=== PATIENT | male | born 1980 | race American Indian/Alaskan Native ===

== ENCOUNTER 2019-01-26 21:33 | Inpatient (IN) | payer BC, OTHER ==
[2019-01-26 22:08] LABS: Basophils % (Auto) 0.6 % (0.0-1.8); Eosinophils # (Auto) 0.1 K/mm3 (0.0-0.4); Eosinophils % (Auto) 0.7 % (0.0-4.3); Lymphocytes # (Auto) 1.5 K/mm3 (1.2-5.4); Lymphocytes % (Auto) 19.5 % (13.4-35.0); Mean Corpuscular HGB Conc 31 % (32-34); Mean Corpuscular Volume 90 fl (84-94); Monocytes # (Auto) 0.5 K/mm3 (0.0-0.8); Monocytes % (Auto) 5.9 % (0.0-7.3); Platelet Count 308 K/mm3 (140-440); Red Blood Count 5.14 M/mm3 (3.65-5.03); Red Cell Distribution Width 14.2 % (13.2-15.2)
[2019-01-26 22:12] LABS: Hematocrit 46.2 % (35.5-45.6); Hemoglobin 14.4 gm/dl (11.8-15.2)
[2019-01-26 22:33] LABS: Alanine Aminotransferase 30 units/L (7-56); Albumin 4.2 g/dL (3.9-5); BUN/Creatinine Ratio 14; Blood Urea Nitrogen 17 mg/dL (9-20); Calcium 10.1 mg/dL (8.4-10.2); Hemolysis Index 30
[2019-01-26] MEDS ORDERED: APRESOLINE IV ONE (22:54)
[2019-01-26] MEDS ORDERED: D50W (25GM) Syringe IV PRN ×3 (22:54→23:34)
--- NOTE | 2019-01-26 22:58 | Emergency Department Report ---
HPI - General Chief Complaint: Urogenital-Male Time Seen by Provider: 01/26/19 22:25 - HPI HPI: 38-year-old -[place] male presents to the emergency department with complaint of thrush, increased urination, increased thirst. The patient was told that he was prediabetic about 2 years ago and also that he had some borderline hypertension but he was not placed on any medications and has been trying to control these conditions with diet. However through triage today his blood sugar was greater than 500 on Accu-Chek. He denies any chest pain, sh ortness of breath, abdominal pain, nausea or vomiting. The patient started having a one-week history of some yellowish white rash or lesions on his tongue that appears consistent with some thrush. He has not taken anything for her symptoms prior to presentation. He is a former smoker, having quit about one week ago. He does not have a primary care physician. ED Past Medical Hx - Past Medical History Previous Medical History?: Yes Hx Hypertension: Yes Hx Diabetes: Yes (prediabetic) - Surgical History Past Surgical History?: No - Social History Smoking Status: Current Every Day Smoker Substance Use Type: Marijuana - Medications Home Medications: Home Medications Medication Instructions Recorded Confirmed Last Taken Type No Known Home Medications [No 01/01/16 01/01/16 Unknown History Reported Home Medications] ED Review of Systems ROS: Stated complaint: ORAL PAIN POSSIBLE UTI Other details as noted in HPI Comment: All other systems reviewed and negative Constitutional: denies: chills, fever Eyes: denies: eye pain, vision change ENT: other (thrush). denies: ear pain Respiratory: denies: cough, shortness of breath Cardiovascular: denies: chest pain, palpitations Gastrointestinal: denies: abdominal pain, vomiting Genitourinary: urgency, frequency. denies: dysuria, discharge Musculoskeletal: denies: back pain, arthralgia Skin: denies: rash, lesions Neurological: denies: headache, weakness Physical Exam - Physical Exam Vital Signs: Vital Signs 01/26/19 21:44 Temperature 97.9 F Pulse Rate 109 H Respiratory 18 Rate Blood Pressure 206/140 [Right] O2 Sat by Pulse 98 Oximetry Physical Exam: GENERAL: The patient is well-developed well-nourished. HEENT: Normocephalic. Atraumatic. Patient has moist mucous membranes. Patient has thrush on his tongue. EYES: Extraocular motions are intact. Pupils are equal and reactive to light bilaterally. NECK: Supple. Trachea is midline. CHEST/LUNGS: Clear to auscultation. There is no respiratory distress noted. HEART/CARDIOVASCULAR: Regular. There is mild tachycardia. There is no obvious murmur. ABDOMEN: Abdomen is soft, nontender. Patient has normal bowel sounds. There is no abdominal distention. SKIN: Skin is warm and dry. NEURO: The patient is awake, alert, and oriented. The patient is cooperative. The patient has no focal neurologic deficits. The patient has normal speech. MUSCULOSKELETAL: There is no tenderness or deformity. There is no limitation range of motion. There is no evidence of acute injury. ED Course Vital Signs 01/26/19 21:44 Temperature 97.9 F Pulse Rate 109 H Respiratory 18 Rate Blood Pressure 206/140 [Right] O2 Sat by Pulse 98 Oximetry ED Medical Decision Making - Lab Data Result diagrams: 01/26/19 21:59 01/27/19 00:04 - Medical Decision Making Patient presents to the emergency department with complaint of thrush, polyuria and polydipsia. He was previously diagnosed as prediabetic allegedly but has not been on any medications. He was found to have a blood sugar of almost 1100. There is not a significant anion gap elevation and there is no venous acidosis and this appears more consistent with HHNK. The patient also presents with very elevated blood pressure with a systolic greater than 200.he was given a dose of hydralazine and it has started to improve. The patient will be admitted to the ICU on an insulin drip was accepted for admission by the hospitalist, Dr. prasad. - Differential Diagnosis DKA, HHNK, HIV, Viral Syndrome, UTI Critical Care Time: Yes Critical care time in (mins) excluding proc time.: 35 Critical care attestation.: If time is entered above; I have spent that time in minutes in the direct care of this critically ill patient, excluding procedure time. Critical care time was spent on this patient and his initial evaluation, multiple re-evaluations, ordering an interpretation of labs and imaging, ordering and management of the insulin drip. Critical Care Time: 35 minutes ED Disposition Clinical Impression: HHNC (hyperglycemic hyperosmolar nonketotic coma), Diabetic hyperosmolar non- ketotic state, Hypertensive urgency Disposition: -09 OP ADMIT IP TO THIS HOSP Is pt being admited?: Yes Condition: Serious Time of Disposition: 00:46
[2019-01-26] MEDS ORDERED: HumuLIN R 100 UNITS in NACL 0.9% 99 ML IV SCH ×2 (23:00→23:45)
[2019-01-26 23:01] LABS: Bilirubin,Urine NEG (Negative); Blood,Urine NEG (Negative); Color,Urine Colorless (Yellow); Mucus,Urine FEW /HPF; Protein,Urine <15 mg/dL mg/dL (Negative); Urobilinogen,Urine < 2.0 mg/dL (<2.0)
--- NOTE | 2019-01-26 23:33 | History and Physical Report ---
History of Present Illness Date of examination: 01/26/19 Chief complaint: Oral thrush with difficulty eating and swallowing History of present illness: HPI: 38-year-old -[place] male presents to the emergency department with complaint of thrush, increased urination, increased thirst. The patient was told that he was prediabetic about 2 years ago and also that he had some borderline hypertension but he was not placed on any medications and has been trying to control these conditions with diet. However through triage today his blood sugar was greater than 500 on Accu-Chek. He denies any chest pain, shortness of breath, abdominal pain, nausea or vomiting. The patient started h aving a one-week history of some yellowish white rash or lesions on his tongue that appears consistent with some thrush. He has not taken anything for her symptoms prior to presentation. He is a former smoker, having quit about one week ago. He does not have a primary care physician. Past History Past Medical History: hypertension, other (prediabetic) Past Surgical History: No surgical history Social history: smoking, full code, other (marijuana) Family history: no significant family history Medications and Allergies Allergies Allergy/AdvReac Type Severity Reaction Status Date / Time banana AdvReac Itching Verified 01/01/16 15:29 walnut AdvReac Itching Verified 01/01/16 15:29 watermelon AdvReac Itching Verified 01/01/16 15:29 Home Medications Medication Instructions Recorded Confirmed Last Taken Type No Known Home Medications [No 01/01/16 01/01/16 Unknown History Reported Home Medications] Active Meds: Active Medications Dextrose (D50w (25gm) Syringe) 0 ml IV PRN PRN PRN Reason: Hypoglycemia Insulin Human Regular 100 (units/ Sodium Chloride) 100 mls @ 6 mls/hr IV TITR DEMARCUS; Protocol Review of Systems All systems: negative (as mentioned in HPI) Exam - Physical Exam Narrative exam: General: the patient is awake alert oriented to time place and person. no evidence of acute distress HEENT: Head is atraumatic normocephalic,. Pupils equal round reactive to light and accommodation, extraocular movements intact. Oral mucosa severely dry with oral thrush. No pharyngeal erythema or tonsillar exudate. Neck: Supple no JVD no thyromegaly or lymphadenopathy. Heart: Regular rate and rhythm no murmurs or gallops. S1 and S2 normal. PMI not displaced. Lungs: Clear to auscultation bilaterally. No rales rhonchi wheezing. Nonlabored breathing. Normal chest wall expansion. Abdomen: Soft, nondistended, and nontender. Normoactive bowel sounds. No hepatosplenomegaly. No abdominal masses or bruit appreciated. Extremities: No cyanosis/clubbing/ edema. Musculoskeletal: Normal range of movement all joints. No obvious deformity or tenderness to palpation. Normal muscle tone. Back: Normal alignment. No step-off. No midline or paraspinal tenderness. No CVA tenderness. Neurological: Grossly intact and nonfocal. No cerebellar signs. Cranial nerves II-12 grossly intact. Strength 5 out of 5 all 4 extremities. Sensations grossly intact. Skin: Warm and dry no rashes or bruises. Psychiatric: Normal mood. Appropriate affect and good insight and judgment. Vascular system: No lymphadenopathy. Distal pulses 2+ bilaterally. - Constitutional Vitals: Temp Pulse Resp BP Pulse Ox 97.9 F 109 H 18 206/140 98 01/26/19 21:44 01/26/19 21:44 01/26/19 21:44 01/26/19 21:44 01/26/19 21:44 Results - Labs CBC & Chem 7: 01/26/19 21:59 01/26/19 21:59 Labs: Laboratory Last Values WBC 7.8 K/mm3 (4.5-11.0) 01/26/19 21:59 RBC 5.14 M/mm3 (3.65-5.03) H 01/26/19 21:59 Hgb 14.4 gm/dl (11.8-15.2) 01/26/19 21:59 Hct 46.2 % (35.5-45.6) H 01/26/19 21:59 MCV 90 fl (84-94) 01/26/19 21:59 MCH 28 pg (28-32) 01/26/19 21:59 MCHC 31 % (32-34) L 01/26/19 21:59 RDW 14.2 % (13.2-15.2) 01/26/19 21:59 Plt Count 308 K/mm3 (140-440) 01/26/19 21:59 Lymph % (Auto) 19.5 % (13.4-35.0) 01/26/19 21:59 [place] % (Auto) 5.9 % (0.0-7.3) 01/26/19 21:59 Eos % (Auto) 0.7 % (0.0-4.3) 01/26/19 21:59 Baso % (Auto) 0.6 % (0.0-1.8) 01/26/19 21:59 Lymph # 1.5 K/mm3 (1.2-5.4) 01/26/19 21:59 [place] # 0.5 K/mm3 (0.0-0.8) 01/26/19 21:59 Eos # 0.1 K/mm3 (0.0-0.4) 01/26/19 21:59 Baso # 0.0 K/mm3 (0.0-0.1) 01/26/19 21:59 Seg Neutrophils % 73.3 % (40.0-70.0) H 01/26/19 21:59 Seg Neutrophils # 5.7 K/mm3 (1.8-7.7) 01/26/19 21:59 VBG pH 7.357 (7.320-7.420) 01/26/19 21:59 Sodium 125 mmol/L (137-145) L 01/26/19 21:59 Potassium 5.1 mmol/L (3.6-5.0) H 01/26/19 21:59 Chloride 85.8 mmol/L (98-107) L 01/26/19 21:59 Carbon Dioxide 25 mmol/L (22-30) 01/26/19 21:59 Anion Gap 19 mmol/L 01/26/19 21:59 BUN 17 mg/dL (9-20) 01/26/19 21:59 Creatinine 1.2 mg/dL (0.8-1.5) 01/26/19 21:59 Estimated GFR > 60 ml/min 01/26/19 21:59 BUN/Creatinine Ratio 14 % 01/26/19 21:59 Glucose 1082 mg/dL (75-100) H* 01/26/19 21:59 POC Glucose > 500 (70-105) H 01/26/19 21:47 Calcium 10.1 mg/dL (8.4-10.2) 01/26/19 21:59 Total Bilirubin 0.40 mg/dL (0.1-1.2) 01/26/19 21:59 AST 13 units/L (5-40) 01/26/19 21:59 ALT 30 units/L (7-56) 01/26/19 21:59 Alkaline Phosphatase 106 units/L (35-129) 01/26/19 21:59 Total Protein 7.6 g/dL (6.3-8.2) 01/26/19 21:59 Albumin 4.2 g/dL (3.9-5) 01/26/19 21:59 Albumin/Globulin Ratio 1.2 % 01/26/19 21:59 Urine Color Colorless (Yellow) 01/26/19 21:58 Urine Turbidity Clear (Clear) 01/26/19 21:58 Urine pH 6.0 (5.0-7.0) 01/26/19 21:58 Ur Specific [place] 1.033 (1.003-1.030) H 01/26/19 21:58 Urine Protein <15 mg/dl mg/dL (Negative) 01/26/19 21:58 Urine Glucose (UA) >=500 mg/dL (Negative) 01/26/19 21:58 Urine Ketones 20 mg/dL (Negative) 01/26/19 21:58 Urine Blood Neg (Negative) 01/26/19 21:58 Urine Nitrite Neg (Negative) 01/26/19 21:58 Urine Bilirubin Neg (Negative) 01/26/19 21:58 Urine Urobilinogen < 2.0 mg/dL (<2.0) 01/26/19 21:58 Ur Leukocyte Esterase Neg (Negative) 01/26/19 21:58 Urine WBC (Auto) 1.0 /HPF (0.0-6.0) 01/26/19 21:58 Urine RBC (Auto) 2.0 /HPF (0.0-6.0) 01/26/19 21:58 Urine Mucus Few /HPF 01/26/19 21:58 Assessment and Plan Assessment and plan: Assessment and plan: * HHNK * Oral thrush * Diabetes mellitus type 2 uncontrolled * Hypertension malignant uncontrolled Plan: Admit patient to ICU Insulin drip Nystatin swish and spit Start patient on by mouth Lopressor and lisinopril Give when necessary IV hydralazine for optimal blood pressure control Diabetes education and consult dietitian Will check hemoglobin A1c Monitor CBC and electrolytes Replace electrolytes when necessary as per protocol DVT GI prophylaxis as ordered Monitor and follow the patient closely
[2019-01-26] MEDS ORDERED: ALUM-MAG HYDROX-SIMETH 200-200-20MG/5ML PO PRN (23:34)
[2019-01-26] MEDS ORDERED: SODIUM CHLORIDE FLUSH SYRINGE 10 ML IV PRN (23:34)
[2019-01-26] MEDS ORDERED: PERCOCET 5/325 PO PRN (23:34)
[2019-01-26] MEDS ORDERED: NACL 0.9% 1000 ML 1,000 ML IV ONE (23:34)
[2019-01-26] MEDS ORDERED: XANAX PO PRN (23:34)
[2019-01-26] MEDS ORDERED: ZOFRAN IV PRN (23:34)
[2019-01-26] MEDS ORDERED: TYLENOL PO PRN (23:34)
[2019-01-26] MEDS ORDERED: AMBIEN PO PRN (23:34)
[2019-01-26] MEDS ORDERED: NACL 0.9% 1000 ML 1,000 ML IV SCH (23:45)
[2019-01-26] MEDS ORDERED: APRESOLINE IV PRN (23:52)
[2019-01-27 00:21] LABS: BUN/Creatinine Ratio 12; Blood Urea Nitrogen 17 mg/dL (9-20); Calcium 9.8 mg/dL (8.4-10.2); Hemolysis Index 11
[2019-01-27 00:34] LABS: BUN/Creatinine Ratio 15; Blood Urea Nitrogen 17 mg/dL (9-20); Hemolysis Index 23
[2019-01-27] MEDS ORDERED: APRESOLINE ONE (01:07)
[2019-01-27] MEDS ORDERED: NACL 0.9% 1000 ML 1,000 ML ONE (01:15)
[2019-01-27 01:35] LABS: BUN/Creatinine Ratio 15; Blood Urea Nitrogen 17 mg/dL (9-20); Calcium 10.1 mg/dL (8.4-10.2); Hemolysis Index 15
[2019-01-27 01:59] LABS: BUN/Creatinine Ratio 15; Blood Urea Nitrogen 16 mg/dL (9-20); Calcium 9.9 mg/dL (8.4-10.2); Hemolysis Index 63
[2019-01-27 04:01] LABS: BUN/Creatinine Ratio 12; Blood Urea Nitrogen 16 mg/dL (9-20); Hemolysis Index 14
[2019-01-27 04:45] LABS: Basophils # (Auto) 0.1 K/mm3 (0.0-0.1); Basophils % (Auto) 0.9 % (0.0-1.8); Eosinophils # (Auto) 0.1 K/mm3 (0.0-0.4); Eosinophils % (Auto) 1.4 % (0.0-4.3); Hematocrit 43.6 % (35.5-45.6); Hemoglobin 14.2 gm/dl (11.8-15.2); Lymphocytes # (Auto) 2.7 K/mm3 (1.2-5.4); Lymphocytes % (Auto) 29.7 % (13.4-35.0); Mean Corpuscular HGB Conc 33 % (32-34); Mean Corpuscular Volume 86 fl (84-94); Monocytes # (Auto) 0.6 K/mm3 (0.0-0.8); Monocytes % (Auto) 6.1 % (0.0-7.3); Platelet Count 355 K/mm3 (140-440); Red Cell Distribution Width 13.2 % (13.2-15.2)
[2019-01-27 05:11] LABS: Alanine Aminotransferase 26 units/L (7-56); BUN/Creatinine Ratio 11; Blood Urea Nitrogen 17 mg/dL (9-20); Calcium 9.7 mg/dL (8.4-10.2); Hemolysis Index 9
[2019-01-27 06:09] LABS: Calcium 9.9 mg/dL (8.4-10.2)
[2019-01-27 06:33] LABS: BUN/Creatinine Ratio 13; Blood Urea Nitrogen 17 mg/dL (9-20); Calcium 9.9 mg/dL (8.4-10.2); Hemolysis Index 5
[2019-01-27 08:16] LABS: BUN/Creatinine Ratio 13; Blood Urea Nitrogen 17 mg/dL (9-20); Calcium 9.2 mg/dL (8.4-10.2); Hemolysis Index 130
[2019-01-27] MEDS: NYSTATIN PO SCH ×3 (08:51→21:15)
--- NOTE | 2019-01-27 09:07 | Progress Note ---
Assessment and Plan Assessment and plan: 38-year-old man who presents to the ER complaining of thrush, increased urination and increased thirst. The patient is unaware of being prediabetic 2 years ago and borderline pre-hypertension. He was not taking any medications. In the ER he was found to have glucose greater than 500. He was admitted to ICU, has been on insulin drip, received IV fluids. The patient recently quit smoking cigarettes a week before presentation. Diagnoses Hyperglycemic hyperosmolar nonketotic state Type 2 diabetes newly diagnosed Active ongoing tobacco abuse Marijuana abuse, active ongoing Oral candidiasis Hypertensive urgency Pseudohyponatremia Plan We'll transition the patient from insulin drip to subcutaneous insulin once Continue IV fluids Diabetic education provided Patient has been counseled on tobacco cessation greater than 10 minutes Patient has been counseled on marijuana cessation, lifestyle modification greater than 16 minutes Nystatin for oral candidiasis Optimize blood pressure medications DVT prophylaxis; early ambulation History Interval history: Review of systems Constitutional: No fevers, no malaise, no joint pains CVS: No chest pain, no orthopnea, no dyspnea on exertion, no pedal edema GI: No abdominal pain, no diarrhea, no vomiting, no constipation Respiratory: No shortness of breath, no wheezing, no coughing Hospitalist Physical - Physical exam Narrative exam: General.: Appears well, no distress, nontoxic HEENT: Moist mucous membranes, extraocular muscles intact, no lymphadenopathy Neck: supple Cardiac: S1-S2 heard Lungs: clear to auscultation bilaterally Abdomen: soft , nontender, nondistended, bowel sounds positive Extremities: no edema clubbing or cyanosis Skin: no rash or lesions Neurologic: no gross focal deficits Psych: calm, and cooperative - Constitutional Vitals: Temp Pulse Resp BP Pulse Ox 97.9 F 94 H 19 120/68 98 01/26/19 21:44 01/27/19 06:58 01/27/19 05:16 01/27/19 06:46 01/27/19 06:46 Results - Labs CBC & Chem 7: 01/27/19 04:16 01/27/19 07:35 Labs: Laboratory Last Values WBC 9.2 K/mm3 (4.5-11.0) 01/27/19 04:16 RBC 5.10 M/mm3 (3.65-5.03) H 01/27/19 04:16 Hgb 14.2 gm/dl (11.8-15.2) 01/27/19 04:16 Hct 43.6 % (35.5-45.6) 01/27/19 04:16 MCV 86 fl (84-94) 01/27/19 04:16 MCH 28 pg (28-32) 01/27/19 04:16 MCHC 33 % (32-34) 01/27/19 04:16 RDW 13.2 % (13.2-15.2) 01/27/19 04:16 Plt Count 355 K/mm3 (140-440) 01/27/19 04:16 Lymph % (Auto) 29.7 % (13.4-35.0) 01/27/19 04:16 [place] % (Auto) 6.1 % (0.0-7.3) 01/27/19 04:16 Eos % (Auto) 1.4 % (0.0-4.3) 01/27/19 04:16 Baso % (Auto) 0.9 % (0.0-1.8) 01/27/19 04:16 Lymph # 2.7 K/mm3 (1.2-5.4) 01/27/19 04:16 [place] # 0.6 K/mm3 (0.0-0.8) 01/27/19 04:16 Eos # 0.1 K/mm3 (0.0-0.4) 01/27/19 04:16 Baso # 0.1 K/mm3 (0.0-0.1) 01/27/19 04:16 Seg Neutrophils % 61.9 % (40.0-70.0) 01/27/19 04:16 Seg Neutrophils # 5.7 K/mm3 (1.8-7.7) 01/27/19 04:16 VBG pH 7.357 (7.320-7.420) 01/26/19 21:59 Sodium 129 mmol/L (137-145) L 01/27/19 07:35 Potassium 4.3 mmol/L (3.6-5.0) 01/27/19 07:35 Chloride 93.8 mmol/L (98-107) L 01/27/19 07:35 Carbon Dioxide 22 mmol/L (22-30) 01/27/19 07:35 Anion Gap 18 mmol/L 01/27/19 07:35 BUN 17 mg/dL (9-20) 01/27/19 07:35 Creatinine 1.3 mg/dL (0.8-1.5) 01/27/19 07:35 Estimated GFR > 60 ml/min 01/27/19 07:35 BUN/Creatinine Ratio 13 % 01/27/19 07:35 Glucose 329 mg/dL (75-100) H 01/27/19 07:35 POC Glucose 297 (70-105) H 01/27/19 09:05 Osmolality 331 Mosm/kg 01/26/19 23:18 Calcium 9.2 mg/dL (8.4-10.2) 01/27/19 07:35 Phosphorus 2.40 mg/dL (2.5-4.5) L D 01/27/19 04:16 Magnesium 2.50 mg/dL (1.7-2.3) H 01/27/19 04:16 Total Bilirubin 0.50 mg/dL (0.1-1.2) 01/27/19 04:16 AST 12 units/L (5-40) 01/27/19 04:16 ALT 26 units/L (7-56) 01/27/19 04:16 Alkaline Phosphatase 90 units/L (35-129) 01/27/19 04:16 Total Protein 7.7 g/dL (6.3-8.2) 01/27/19 04:16 Albumin 4.0 g/dL (3.9-5) 01/27/19 04:16 Albumin/Globulin Ratio 1.1 % 01/27/19 04:16 Urine Color Colorless (Yellow) 01/26/19 21:58 Urine Turbidity Clear (Clear) 01/26/19 21:58 Urine pH 6.0 (5.0-7.0) 01/26/19 21:58 Ur Specific [place] 1.033 (1.003-1.030) H 01/26/19 21:58 Urine Protein <15 mg/dl mg/dL (Negative) 01/26/19 21:58 Urine Glucose (UA) >=500 mg/dL (Negative) 01/26/19 21:58 Urine Ketones 20 mg/dL (Negative) 01/26/19 21:58 Urine Blood Neg (Negative) 01/26/19 21:58 Urine Nitrite Neg (Negative) 01/26/19 21:58 Urine Bilirubin Neg (Negative) 01/26/19 21:58 Urine Urobilinogen < 2.0 mg/dL (<2.0) 01/26/19 21:58 Ur Leukocyte Esterase Neg (Negative) 01/26/19 21:58 Urine WBC (Auto) 1.0 /HPF (0.0-6.0) 01/26/19 21:58 Urine RBC (Auto) 2.0 /HPF (0.0-6.0) 01/26/19 21:58 Urine Mucus Few /HPF 01/26/19 21:58 Active Medications - Current Medications Current Medications: Generic Name Dose Route Start Last Admin Trade Name Freq PRN Reason Stop Dose Admin Acetaminophen 650 mg 01/26/19 23:34 Tylenol PO Q6HR PRN For Pain/Fever/Headache Al Hydrox/Mg Hydrox/Simethicone 30 ml 01/26/19 23:34 Alum-Mag Hydrox-Simeth [id number]/5ml PO Q4H PRN Indigestion Alprazolam 0.25 mg 01/26/19 23:34 Xanax PO Q8H PRN Anxiety Dextrose 0 ml 01/26/19 23:34 D50w (25gm) Syringe IV ONCE PRN Hypoglycemia Docusate Sodium 100 mg 01/27/19 10:00 Colace PO BID [facility] Enoxaparin Sodium 40 mg 01/27/19 10:00 Lovenox SUB-Q QDAY DEMARCUS Famotidine 20 mg 01/27/19 10:00 Pepcid PO BID [facility] Hydralazine HCl 10 mg 01/26/19 23:52 Apresoline IV Q4HR PRN Hypertension Sodium Chloride 1,000 mls @ 150 mls/hr 01/26/19 23:45 01/27/19 00:48 Nacl 0.9% 1000 Ml IV 150 mls/hr DIRECT DEMARCUS Administration Insulin Human Regular 100 100 mls @ 1 mls/hr 01/26/19 23:45 01/27/19 08:13 units/ Sodium Chloride IV 9 units/hr TITR DEMARCUS 9 mls/hr Titration Protocol 1 UNITS/HR Lisinopril 10 mg 01/27/19 10:00 Zestril PO QDAY [facility] Metoprolol Tartrate 25 mg 01/27/19 10:00 Lopressor PO BID DEMARCUS Nystatin 500,000 unit 01/27/19 08:00 01/27/19 08:51 Nystatin PO 500,000 unit TID DEMARCUS Administration Ondansetron HCl 4 mg 01/26/19 23:34 Zofran IV Q8H PRN Nausea And Vomiting Oxycodone/Acetaminophen 1 tab 01/26/19 23:34 Percocet 5/325 PO Q6H PRN Pain, Moderate (4-6) Sodium Chloride 10 ml 01/27/19 10:00 Sodium Chloride Flush Syringe 10 Ml IV BID DEMARCUS Sodium Chloride 10 ml 01/26/19 23:34 Sodium Chloride Flush Syringe 10 Ml IV PRN PRN LINE FLUSH Zolpidem Tartrate 5 mg 01/26/19 23:34 Ambien PO QHS PRN Sleeplessness
[2019-01-27] MEDS ORDERED: HABITROL TD PRN (09:11)
[2019-01-27] MEDS ORDERED: APRESOLINE IV PRN (09:11)
[2019-01-27] MEDS ORDERED: LOPRESSOR PO SCH (10:00)
[2019-01-27] MEDS ORDERED: ZESTRIL PO SCH (10:00)
[2019-01-27] MEDS ORDERED: LOVENOX SUB-Q ONE (12:11)
[2019-01-27] MEDS ORDERED: PEPCID ONE (12:12)
[2019-01-27] MEDS ORDERED: ZESTRIL ONE (12:12)
[2019-01-27] MEDS: PEPCID PO SCH ×2 (12:21→21:15)
[2019-01-27] MEDS: SODIUM CHLORIDE FLUSH SYRINGE 10 ML IV SCH ×2 (12:21→21:33)
[2019-01-27] MEDS: LOVENOX SUB-Q SCH (12:21)
[2019-01-27] MEDS: ZESTRIL PO SCH (12:21)
[2019-01-27] MEDS ORDERED: HumaLOG SUB-Q ONE (12:48)
[2019-01-27] MEDS: HumaLOG SUB-Q SCH ×2 (13:08→18:09)
[2019-01-27] MEDS: COLACE PO SCH ×2 (14:21→21:15)
[2019-01-27 15:45] LABS: BUN/Creatinine Ratio 16; Blood Urea Nitrogen 19 mg/dL (9-20); Calcium 8.9 mg/dL (8.4-10.2); Hemolysis Index 5
[2019-01-27] MEDS: HumuLIN R SUB-Q SCH (21:16)
[2019-01-27] MEDS ORDERED: LANTUS SUB-Q SCH (22:00)
[2019-01-27 22:57] LABS: BUN/Creatinine Ratio 17; Blood Urea Nitrogen 20 mg/dL (9-20); Calcium 8.6 mg/dL (8.4-10.2); Hemolysis Index 13
[2019-01-28] MEDS ORDERED: LANTUS SUB-Q ONE (01:16)
[2019-01-28] MEDS ORDERED: HumaLOG SUB-Q SCH ×2 (07:30→16:30)
[2019-01-28] MEDS ORDERED: LANTUS SUB-Q SCH (09:30)
[2019-01-28] MEDS: PEPCID PO SCH ×2 (09:32→21:33)
[2019-01-28] MEDS: ZESTRIL PO SCH (09:33)
[2019-01-28] MEDS: GLUCOPHAGE PO SCH ×2 (09:33→19:34)
[2019-01-28] MEDS: NYSTATIN PO SCH ×3 (09:33→21:32)
[2019-01-28] MEDS: COLACE PO SCH ×2 (09:33→21:33)
[2019-01-28] MEDS: LOVENOX SUB-Q SCH (09:34)
[2019-01-28] MEDS: HumaLOG SUB-Q SCH ×5 (09:35→17:36)
--- NOTE | 2019-01-28 11:03 | Progress Note ---
Assessment and Plan Assessment and plan: 38-year-old man who presents to the ER complaining of thrush, increased urination and increased thirst. The patient is unaware of being prediabetic 2 years ago and borderline pre-hypertension. He was not taking any medications. In the ER he was found to have glucose greater than 500. He was admitted to ICU, has been on insulin drip, received IV fluids. The patient recently quit smoking cigarettes a week before presentation. Diagnoses Hyperglycemic hyperosmolar nonketotic state Type 2 diabetes newly diagnosed Active ongoing tobacco abuse Marijuana abuse, active ongoing Oral candidiasis Hypertensive urgency Pseudohyponatremia Plan optimize sq insulins Continue IV fluids Diabetic education provided Patient has been counseled on tobacco cessation greater than 10 minutes Patient has been counseled on marijuana cessation, lifestyle modification greater than 16 minutes Nystatin for oral candidiasis Optimize blood pressure medications DVT prophylaxis; early ambulation History Interval history: Review of systems Constitutional: No fevers, no malaise, no joint pains CVS: No chest pain, no orthopnea, no dyspnea on exertion, no pedal edema GI: No abdominal pain, no diarrhea, no vomiting, no constipation Respiratory: No shortness of breath, no wheezing, no coughing Hospitalist Physical - Physical exam Narrative exam: General.: Appears well, no distress, nontoxic HEENT: Moist mucous membranes, extraocular muscles intact, no lymphadenopathy Neck: supple Cardiac: S1-S2 heard Lungs: clear to auscultation bilaterally Abdomen: soft , nontender, nondistended, bowel sounds positive Extremities: no edema clubbing or cyanosis Skin: no rash or lesions Neurologic: no gross focal deficits Psych: calm, and cooperative - Constitutional Vitals: Temp Pulse Resp BP Pulse Ox 98.0 F 82 20 135/83 98 01/28/19 05:51 01/28/19 09:33 01/28/19 05:51 01/28/19 09:33 01/28/19 05:51 Results - Labs CBC & Chem 7: 01/27/19 04:16 01/27/19 22:26 Labs: Laboratory Last Values WBC 9.2 K/mm3 (4.5-11.0) 01/27/19 04:16 RBC 5.10 M/mm3 (3.65-5.03) H 01/27/19 04:16 Hgb 14.2 gm/dl (11.8-15.2) 01/27/19 04:16 Hct 43.6 % (35.5-45.6) 01/27/19 04:16 MCV 86 fl (84-94) 01/27/19 04:16 MCH 28 pg (28-32) 01/27/19 04:16 MCHC 33 % (32-34) 01/27/19 04:16 RDW 13.2 % (13.2-15.2) 01/27/19 04:16 Plt Count 355 K/mm3 (140-440) 01/27/19 04:16 Lymph % (Auto) 29.7 % (13.4-35.0) 01/27/19 04:16 [place] % (Auto) 6.1 % (0.0-7.3) 01/27/19 04:16 Eos % (Auto) 1.4 % (0.0-4.3) 01/27/19 04:16 Baso % (Auto) 0.9 % (0.0-1.8) 01/27/19 04:16 Lymph # 2.7 K/mm3 (1.2-5.4) 01/27/19 04:16 [place] # 0.6 K/mm3 (0.0-0.8) 01/27/19 04:16 Eos # 0.1 K/mm3 (0.0-0.4) 01/27/19 04:16 Baso # 0.1 K/mm3 (0.0-0.1) 01/27/19 04:16 Seg Neutrophils % 61.9 % (40.0-70.0) 01/27/19 04:16 Seg Neutrophils # 5.7 K/mm3 (1.8-7.7) 01/27/19 04:16 VBG pH 7.357 (7.320-7.420) 01/26/19 21:59 Sodium 127 mmol/L (137-145) L 01/27/19 22:26 Potassium 3.7 mmol/L (3.6-5.0) 01/27/19 22:26 Chloride 90.1 mmol/L (98-107) L 01/27/19 22:26 Carbon Dioxide 23 mmol/L (22-30) 01/27/19 22:26 Anion Gap 18 mmol/L 01/27/19 22:26 BUN 20 mg/dL (9-20) 01/27/19 22:26 Creatinine 1.2 mg/dL (0.8-1.5) 01/27/19 22:26 Estimated GFR > 60 ml/min 01/27/19 22:26 BUN/Creatinine Ratio 17 % 01/27/19 22:26 Glucose 444 mg/dL (75-100) H 01/27/19 22:26 POC Glucose 307 (70-105) H 01/28/19 07:31 Hemoglobin A1c 17.1 % (4-6) H 01/28/19 05:16 Osmolality 331 Mosm/kg 01/26/19 23:18 Calcium 8.6 mg/dL (8.4-10.2) 01/27/19 22:26 Phosphorus 2.40 mg/dL (2.5-4.5) L D 01/27/19 04:16 Magnesium 2.50 mg/dL (1.7-2.3) H 01/27/19 04:16 Total Bilirubin 0.50 mg/dL (0.1-1.2) 01/27/19 04:16 AST 12 units/L (5-40) 01/27/19 04:16 ALT 26 units/L (7-56) 01/27/19 04:16 Alkaline Phosphatase 90 units/L (35-129) 01/27/19 04:16 Total Protein 7.7 g/dL (6.3-8.2) 01/27/19 04:16 Albumin 4.0 g/dL (3.9-5) 01/27/19 04:16 Albumin/Globulin Ratio 1.1 % 01/27/19 04:16 Urine Color Colorless (Yellow) 01/26/19 21:58 Urine Turbidity Clear (Clear) 01/26/19 21:58 Urine pH 6.0 (5.0-7.0) 01/26/19 21:58 Ur Specific Laura 1.033 (1.003-1.030) H 01/26/19 21:58 Urine Protein <15 mg/dl mg/dL (Negative) 01/26/19 21:58 Urine Glucose (UA) >=500 mg/dL (Negative) 01/26/19 21:58 Urine Ketones 20 mg/dL (Negative) 01/26/19 21:58 Urine Blood Neg (Negative) 01/26/19 21:58 Urine Nitrite Neg (Negative) 01/26/19 21:58 Urine Bilirubin Neg (Negative) 01/26/19 21:58 Urine Urobilinogen < 2.0 mg/dL (<2.0) 01/26/19 21:58 Ur Leukocyte Esterase Neg (Negative) 01/26/19 21:58 Urine WBC (Auto) 1.0 /HPF (0.0-6.0) 01/26/19 21:58 Urine RBC (Auto) 2.0 /HPF (0.0-6.0) 01/26/19 21:58 Urine Mucus Few /HPF 01/26/19 21:58 Active Medications - Current Medications Current Medications: Generic Name Dose Route Start Last Admin Trade Name Freq PRN Reason Stop Dose Admin Acetaminophen 650 mg 01/26/19 23:34 Tylenol PO Q6HR PRN For Pain/Fever/Headache Al Hydrox/Mg Hydrox/Simethicone 30 ml 01/26/19 23:34 Alum-Mag Hydrox-Simeth 235-637-69bn/5ml PO Q4H PRN Indigestion Dextrose 0 ml 01/26/19 23:34 D50w (25gm) Syringe IV ONCE PRN Hypoglycemia Docusate Sodium 100 mg 01/27/19 10:00 01/28/19 09:33 Colace PO 100 mg BID DEMARCUS Administration Enoxaparin Sodium 40 mg 01/27/19 10:00 01/28/19 09:34 Lovenox SUB-Q 40 mg QDAY DEMARCUS Administration Famotidine 20 mg 01/27/19 10:00 01/28/19 09:32 Pepcid PO 20 mg BID DEMARCUS Administration Hydralazine HCl 10 mg 01/27/19 09:11 Apresoline IV Q4HR PRN BP >160/100 Sodium Chloride 1,000 mls @ 150 mls/hr 01/26/19 23:45 01/27/19 00:48 Nacl 0.9% 1000 Ml IV 150 mls/hr DIRECT DEMARCUS Administration Insulin Glargine 50 units 01/28/19 09:30 Lantus SUB-Q BID DEMARCUS Insulin Human Lispro 0 unit 01/27/19 11:30 01/28/19 09:35 Humalog SUB-Q 6 unit AC DEMARCUS Administration Protocol Insulin Human Lispro 15 unit 01/28/19 08:00 01/28/19 09:36 Humalog SUB-Q 15 unit AC DEMARCUS Administration Insulin Human Regular 0 units 01/27/19 22:00 01/27/19 21:16 Humulin R SUB-Q 5 units QHS DEMARCUS Administration Protocol Lisinopril 20 mg 01/27/19 10:00 01/28/19 09:33 Zestril PO 20 mg QDAY DEMARCUS Administration Metformin HCl 500 mg 01/28/19 08:00 01/28/19 09:33 Glucophage PO 500 mg BIDDIAB DEMARCUS Administration Nicotine 14 mg 01/27/19 09:11 Habitrol TD QDAY PRN tobacco cravings Nystatin 500,000 unit 01/27/19 08:00 01/28/19 09:33 Nystatin PO 500,000 unit TID DEMARCUS Administration Ondansetron HCl 4 mg 01/26/19 23:34 Zofran IV Q8H PRN Nausea And Vomiting Pneumococcal Polyvalent Vaccine 0.5 ml 01/28/19 12:00 Pneumovax 23 IM 01/28/19 12:01 .ONCE ONE Sodium Chloride 10 ml 01/27/19 10:00 01/27/19 21:33 Sodium Chloride Flush Syringe 10 Ml IV 10 ml BID DEMARCUS Administration Sodium Chloride 10 ml 01/26/19 23:34 Sodium Chloride Flush Syringe 10 Ml IV PRN PRN LINE FLUSH
[2019-01-28] MEDS ORDERED: PNEUMOVAX 23 IM ONE (12:00)
[2019-01-28] MEDS: SODIUM CHLORIDE FLUSH SYRINGE 10 ML IV SCH ×2 (12:43→21:35)
[2019-01-28] MEDS: LANTUS SUB-Q SCH (21:33)
[2019-01-28] MEDS: HumuLIN R SUB-Q SCH (21:34)
[2019-01-29] MEDS: NYSTATIN PO SCH ×2 (09:10→14:22)
[2019-01-29] MEDS: COLACE PO SCH (09:11)
[2019-01-29] MEDS: GLUCOPHAGE PO SCH (09:11)
[2019-01-29] MEDS: LOVENOX SUB-Q SCH (09:11)
[2019-01-29] MEDS: PEPCID PO SCH (09:12)
[2019-01-29] MEDS: ZESTRIL PO SCH (09:12)
[2019-01-29] MEDS: LANTUS SUB-Q SCH (09:12)
[2019-01-29] MEDS: HumaLOG SUB-Q SCH ×5 (09:15→16:16)
[2019-01-29] MEDS: SODIUM CHLORIDE FLUSH SYRINGE 10 ML IV SCH (09:17)
[2019-01-29 12:38] VITALS: BP 120/72
--- NOTE | 2019-01-29 13:53 | Discharge Summary ---
Providers - Providers Date of Admission: 01/26/19 23:34 Attending physician: ZULLY VINCENT MD 01/26/19 23:34 Consult to Dietitian/Nutrition [CONS] Routine Physician Instructions: Reason For Exam: Reason for Consult: Diet education 01/26/19 23:39 Consult to Case Management [CONS] Routine Services Needed at Discharge: Other Notified:: jaelyn Primary care physician: JONATHAN GRIMM Hospitalization Condition: Serious Hospital course: 38-year-old man who presents to the ER complaining of thrush, increased urination and increased thirst. The patient is unaware of being prediabetic 2 years ago and borderline pre-hypertension. He was not taking any medications. In the ER he was found to have glucose greater than 500. He was admitted to ICU, has been on insulin drip, received IV fluids. The patient recently quit smoking cigarettes a week before presentation. Diagnoses Hyperglycemic hyperosmolar nonketotic state Type 2 diabetes newly diagnosed Active ongoing tobacco abuse Marijuana abuse, active ongoing Oral candidiasis Hypertensive urgency Pseudohyponatremia Plan He was treated with IV fluids and insulin drip. He was then transitioned to subcutaneous insulin. He received diabetic education. He received dietitian consult. The patient was started on blood pressure medications for hypertension He receives antifungals for oral thrush The patient was counseled on tobacco cessation greater than 10 minutes, he was counseled on marijuana cessation, lifestyle modification greater than 16 minutes Disposition: [id number]-01 TO HOME OR SELFCARE Time spent for discharge: 33 mins Core Measure Documentation - Palliative Care Palliative Care/ Comfort Measures: Not Applicable - Core Measures Any of the following diagnoses?: none Exam - Constitutional Vitals: Temp Pulse Resp BP Pulse Ox 98.5 F 70 18 120/72 98 01/29/19 12:17 01/29/19 12:17 01/29/19 12:17 01/29/19 12:17 01/29/19 12:17 General appearance: Present: no acute distress, well-nourished - EENT Eyes: Present: PERRL ENT: hearing intact, clear oral mucosa - Neck Neck: Present: supple, normal ROM - Respiratory Respiratory effort: normal Respiratory: bilateral: CTA - Cardiovascular Heart Sounds: Present: S1 & S2. Absent: rub, click - Extremities Extremities: pulses symmetrical, No edema Peripheral Pulses: within normal limits - Abdominal General gastrointestinal: Present: soft, non-tender, non-distended, normal bowel sounds Male genitourinary: Present: normal - Integumentary Integumentary: Present: clear, warm, dry - Musculoskeletal Musculoskeletal: gait normal, strength equal bilaterally - Psychiatric Psychiatric: appropriate mood/affect, intact judgment & insight - Neurologic Neurologic: CNII-XII intact, moves all extremities Plan Follow up with: JONATHAN GRIMM MD [Primary Care Provider] - 3-5 Days Forms: Work/School Release Form Prescriptions: metFORMIN [Glucophage] 500 mg PO BIDDIAB #60 tablet Nicotine [Habitrol] 14 mg TD QDAY PRN #30 patch PRN Reason: tobacco cravings Insulin NPH Hum/Reg Insulin Hm [HumuLIN 70-30 Vial] 52 unit SQ BIDAC 30 Days ml Insulin Regular, Human [HumuLIN R] 12 unit SQ Q24H #1 vial Lisinopril 20 mg PO DAILY #30 tablet Nystatin [Nystatin SUSP] 500,000 unit PO TID 7 Days udc
== END 2019-01-29 16:34 | disposition home or self-care (01) | DRG 638 ==
LOC: ED 21:33 → CC1 23:34 → 3A 01-27 10:19
PROVIDERS: ADMIT Internal Medicine Geriatric Medicine; ATTEND Internal Medicine
PROC: 3E0234Z Introduction of Serum, Toxoid and Vaccine into Muscle, Percutaneous Approach (ICD-10-PCS; principal; 2019-01-28)
DX: E11.00 Type 2 diabetes mellitus with hyperosmolarity without nonketotic hyperglycemic-hyperosmolar coma (NKHHC) (principal); E87.0 Hyperosmolality and hypernatremia; B37.0 Candidal stomatitis; I16.0 Hypertensive urgency; F17.210 Nicotine dependence, cigarettes, uncomplicated; F12.10 Cannabis abuse, uncomplicated; I10 Essential (primary) hypertension; Z23 Encounter for immunization; Z91.018 Allergy to other foods; Z79.84 Long term (current) use of oral hypoglycemic drugs
CPT/HCPCS: 36415; 80048; 80053; 81001; 82805; 82962; 83036; 83735; 83930; 84100; 85025; 90732; G0378; J0360; J1650; J1815; J7030